=== PATIENT | female | born 1960 | race Caucasian/White ===

== ENCOUNTER 2022-04-26 13:40 | Emergency (ER) | payer OTHER, MEDICARE ==
[~2022-04-26] VITALS: Ht 152.4 cm; Wt 104.0 kg
[2022-04-26 13:49] VITALS: BP 145/72
[2022-04-26] MEDS ORDERED: IBUP-2029 MT (17:47)
== END 2022-04-26 18:35 | disposition home or self-care (01) ==
LOC: ER 13:40
DX: T14.8XXA Other injury of unspecified body region, initial encounter (principal); V49.59XA Passenger injured in collision with other motor vehicles in traffic accident, initial encounter; Y93.89 Activity, other specified; Y92.89 Other specified places as the place of occurrence of the external cause; Y99.8 Other external cause status; I10 Essential (primary) hypertension; Z86.73 Personal history of transient ischemic attack (TIA), and cerebral infarction without residual deficits
CPT/HCPCS: 73080; 73562; 99284